=== PATIENT | male | born 1975 | race African-American/Black ===

== ENCOUNTER 2023-02-11 09:33 | Emergency (ER) | payer OTHER ==
[~2023-02-11] VITALS: Ht 327.7 cm; Wt 83.9 kg
[~2023-02-11 09:33] MED LIST: ALBUTEROL; ASPIRIN81 MG PO; GLIPIZIDE ER10 MG PO; LANTUS 3ML100 UNITS/ SC; LISINOPRIL10 MG PO; METFORMIN HCL1000 MG PO; MONTELUKAST SOD10 MG PO; OMEPRAZOLE40 MG PO; PIOGLITAZONE HC45 MG PO; SIMVASTATIN20 MG PO
[2023-02-11 09:35] VITALS: O2SAT 100
== END 2023-02-11 09:58 | disposition home or self-care (01) ==
LOC: ER 09:41
DX: R20.0 Anesthesia of skin (principal); E11.42 Type 2 diabetes mellitus with diabetic polyneuropathy
CPT/HCPCS: 99282